=== PATIENT | male | born 1950 | race Caucasian/White ===

== ENCOUNTER 2017-02-26 14:54 | Inpatient (IN) | payer OTHER ==
[~2017-02-26] VITALS: Ht 188 cm; Wt 91.8 kg
[2017-02-26] VITALS (10 sets, daily range): BP systolic 122–165; BP diastolic 65–96; PULSE 60–72; RESP 16–20; TEMP 98.7–98.8; O2SAT 93–97
[~2017-02-26 14:54] MED LIST: LORTA5 PO; PHEN12.5 PR; PROM25TA5 PO; TAMS0.4C67 PO
[2017-02-26] MEDS ORDERED: [UNRECOGNIZED DRUG - REMARK] PO (15:31)
[2017-02-26] MEDS ORDERED: SODIUM CHLOR 0.9% 1000 ML INJ 1,000 ML IV SCH (15:40)
[2017-02-26] MEDS ORDERED: SODIUM CHLORIDE 0.9% FLUSH 10 ML FLUSH IV FLUSH PRN ×2 (15:45→17:45)
[2017-02-26] MEDS ORDERED: ONDANSETRON HCL 4 MG/2 ML VIAL IVP ONE (15:45)
[2017-02-26 16:02] LABS: AUTOMATED NEUTROPHIL # 6.2 TH/MM3 (1.8-7.7); BASOPHIL # 0.1 TH/MM3 (0-0.2); BASOPHIL % 1.1 % (0.0-2.0); EOSINOPHIL # 0.1 TH/MM3 (0-0.4); EOSINOPHIL % 1.1 % (0.0-4.0); HEMATOCRIT 42.9 % (39.0-51.0); HEMO FLAGS DIFF FINAL; LYMPH % 28.8 % (9.0-44.0); LYMPHOCYTE # 3.1 TH/MM3 (1.0-4.8); MEAN CORPUSCULAR HEMOGLOBIN 32.1 PG (27.0-34.0); MEAN CORPUSCULAR HGB CONC 34.1 % (32.0-36.0); MONO % 12.1 % (0.0-8.0); NEUT % 56.9 % (16.0-70.0); PLATELET COUNT 259 TH/MM3 (150-450); RED BLOOD COUNT 4.57 MIL/MM3 (4.50-5.90); RED CELL DISTRIBUTION WIDTH 12.3 % (11.6-17.2); WHITE BLOOD COUNT 10.8 TH/MM3 (4.0-11.0)
--- NOTE | 2017-02-26 16:14 | RADHPO ---
EXAM DATE/TIME: 02/26/2017 15:58 [facility] COMPARISON: No previous studies available for comparison. INDICATIONS : Chest pain; evaluate for free air. MEDICAL HISTORY : None. SURGICAL HISTORY : None. ENCOUNTER: Initial ACUITY: 1 day PAIN SCORE: 5/10 LOCATION: Bilateral chest FINDINGS: Bibasilar patchiness is noted consistent with atelectasis and/or pneumonia. Clinical correlation is r ecommended. The heart is normal. There is no evidence of free intraperitoneal air. CONCLUSION: 1. No free intraperitoneal air. 2. Bibasilar atelectasis and/or mild infiltrates. Clinical correlation is recommended. Collin Ashraf MD on February 26, 2017 at 16:11 Board Certified Radiologist. This report was verified electronically.
[2017-02-26 16:15] LABS: CHLORIDE 108 MEQ/L (98-107); POTASSIUM 3.8 MEQ/L (3.5-5.1); SODIUM (NA) 143 MEQ/L (136-145)
[2017-02-26 16:20] LABS: ANION GAP 9 MEQ/L (5-15); BICARBONATE 26.3 MEQ/L (21.0-32.0); BLOOD UREA NITROGEN 20 MG/DL (7-18)
[2017-02-26 16:21] LABS: APTT (PATIENT) 27.3 SEC (24.3-30.1); INTERNATIONAL NORMALIZED RATIO 0.9 RATIO; PROTHROMBIN TIME - PATIENT 10.2 SEC (9.8-11.6)
[2017-02-26 16:22] LABS: ALT (GPT) 37 U/L (12-78); AST (GOT) 19 U/L (15-37); GLOMERULAR FILTRATION RATE 51 ML/MIN (>89)
[2017-02-26 16:24] LABS: TOTAL BILIRUBIN ADULT 0.8 MG/DL (0.2-1.0)
[2017-02-26 16:25] LABS: ALKALINE PHOSPHATASE 69 U/L (45-117)
[2017-02-26] MEDS ORDERED: MORPHINE SULFATE 4 MG/ML INJ IV PUSH ONE (16:30)
--- NOTE | 2017-02-26 16:42 | PD ---
HPI Chief Complaint: Abdominal Pain Time Seen by Provider: 16:01 Travel History International Travel<30 days: No Contact w/Intl Traveler<30days: No Traveled to known affect area: No History of Present Illness HPI Patient is a 66-year-old male who presents to emergency room with complaints of abdominal pain. Reports that around 2:45 this afternoon, he began to have epigastric pain. Patient reports that he felt nauseous and began to vomit. Patient reports that pain is similar to when he was diagnosed with pancreatitis in the past. Patient reports that he does see Dr. Purdy at the [facility] as his GI physician. Reports that he is not an alcoholic, reports that "they did all these test on me and they can't tell me why I keep getting pancreatitis." Denies fever/chills. Denies chest pain/sob. PFSH Past Medical History Arthritis: Yes Autoimmune Disease: No Cancer: No Cardiovascular Problems: No Diminished Hearing: No Endocrine: No Gastrointestinal Disorders: Yes (PANCREATIC CYST, GASTRIC ULCERS) Genitourinary: Yes Hepatitis: Yes (B) Immune Disorder: No Kidney Stones: Yes Musculoskeletal: Yes Neurologic: No Psychiatric: No Reproductive: No Respiratory: Yes Immunizations Current: Yes Pancreatitis: Yes Ulcer: Yes Tetanus Vaccination: < 5 Years Influenza Vaccination: No Past Surgical History Other Surgery: Yes Social History Alcohol Use: No Tobacco Use: Yes (1 PPD) Substance Use: No Allergies-Medications (Allergen,Severity, Reaction): Coded Allergies: No Known Allergies (Unverified , 02/26/17) Reported Meds & Prescriptions Reported Meds & Active Scripts Active Reported [mucuspill] 1 Tab PO BID Review of Systems General / Constitutional: No: Fever Eyes: No: Visual changes HENT: No: Headaches Cardiovascular: No: Chest Pain or Discomfort Respiratory: No: Shortness of Breath Gastrointestinal: Positive: Nausea, Vomiting, Abdominal Pain Genitourinary: No: Dysuria Musculoskeletal: No: Pain Skin: No Rash Neurologic: No: Weakness Psychiatric: No: Depression Endocrine: No: Polydipsia Hematologic/Lymphatic: No: Easy Bruising Physical Exam Narrative GENERAL: moderate distress SKIN: Focused skin assessment warm/dry. HEAD: Atraumatic. Normocephalic. EYES: Pupils equal and round. No scleral icterus. No injection or drainage. ENT: No nasal bleeding or discharge. Mucous membranes pink and moist. NECK: Trachea midline. No JVD. CARDIOVASCULAR: Regular rate and rhythm. No murmur appreciated. RESPIRATORY: No accessory muscle use. Clear to auscultation. Breath sounds equal bilaterally. GASTROINTESTINAL: Abdomen soft, increased tenderness to epigastrium with guarding on exam MUSCULOSKELETAL: No obvious deformities. No clubbing. No cyanosis. No edema. NEUROLOGICAL: Awake and alert. No obvious cranial nerve deficits. Motor grossly within normal limits. Normal speech. PSYCHIATRIC: Appropriate mood and affect; insight and judgment normal. Data Data Last Documented VS Vital Signs Date Time Temp Pulse Resp B/P Pulse Ox O2 Delivery O2 Flow Rate FiO2 02/26/17 17:33 65 18 122/65 96 Room Air 02/26/17 14:59 98.8 Orders Complete Blood Count With Diff (02/26/17 15:40) Comprehensive Metabolic Panel (02/26/17 15:40) Lipase (02/26/17 15:40) Prothrombin Time / Inr (Pt) (02/26/17 15:40) Act Partial Throm Time (Ptt) (02/26/17 15:40) Iv Access Insert/Monitor (02/26/17 15:40) Oximetry (02/26/17 15:40) NPO (02/26/17 15:40) Ondansetron Inj (Zofran Inj) (02/26/17 15:45) Sodium Chlor 0.9% 1000 Ml Inj (Ns 1000 M (02/26/17 15:40) Sodium Chloride 0.9% Flush (Ns Flush) (02/26/17 15:45) Electrocardiogram (02/26/17 15:40) Chest, Single Ap (02/26/17 15:40) Morphine Inj (Morphine Inj) (02/26/17 16:30) Ct Abd/Pel W Iv Contrast(Rout) (02/26/17 16:29) Hydromorphone Pf Inj (Dilaudid Pf Inj) (02/26/17 17:00) Iohexol 350 Inj (Omnipaque 350 Inj) (02/26/17 17:15) Admit Order (Ed Use Only) (02/26/17 17:44) Labs Laboratory Tests Test 02/26/17 15:30 White Blood Count 10.8 TH/MM3 Red Blood Count 4.57 MIL/MM3 Hemoglobin 14.6 GM/DL Hematocrit 42.9 % Mean Corpuscular Volume 94.0 FL Mean Corpuscular Hemoglobin 32.1 PG Mean Corpuscular Hemoglobin 34.1 % Concent Red Cell Distribution Width 12.3 % Platelet Count 259 TH/MM3 Mean Platelet Volume 8.9 FL Neutrophils (%) (Auto) 56.9 % Lymphocytes (%) (Auto) 28.8 % Monocytes (%) (Auto) 12.1 % Eosinophils (%) (Auto) 1.1 % Basophils (%) (Auto) 1.1 % Neutrophils # (Auto) 6.2 TH/MM3 Lymphocytes # (Auto) 3.1 TH/MM3 Monocytes # (Auto) 1.3 TH/MM3 Eosinophils # (Auto) 0.1 TH/MM3 Basophils # (Auto) 0.1 TH/MM3 CBC Comment DIFF FINAL Differential Comment Prothrombin Time 10.2 SEC Prothromb Time International 0.9 RATIO Ratio Activated Partial 27.3 SEC Thromboplast Time Sodium Level 143 MEQ/L Potassium Level 3.8 MEQ/L Chloride Level 108 MEQ/L Carbon Dioxide Level 26.3 MEQ/L Anion Gap 9 MEQ/L Blood Urea Nitrogen 20 MG/DL Creatinine 1.40 MG/DL Estimat Glomerular Filtration 51 ML/MIN Rate Random Glucose 126 MG/DL Calcium Level 8.9 MG/DL Total Bilirubin 0.8 MG/DL Aspartate Amino Transf 19 U/L (AST/SGOT) Alanine Aminotransferase 37 U/L (ALT/SGPT) Alkaline Phosphatase 69 U/L Total Protein 7.6 GM/DL Albumin 3.8 GM/DL Lipase GREATER THAN 50131 U/L MDM Medical Decision Making Medical Screen Exam Complete: Yes Emergency Medical Condition: Yes Interpretation(s) EKG at 1544: NSR at 63bpm, qt/qtc: 408/413, no acute st or t wave changes Vital Signs Date Time Temp Pulse Resp B/P Pulse Ox O2 Delivery O2 Flow Rate FiO2 02/26/17 16:26 72 18 165/84 94 Room Air 02/26/17 15:54 95 Room Air 02/26/17 15:54 61 18 150/88 95 Room Air 02/26/17 15:24 60 20 147/84 96 Room Air 02/26/17 14:59 98.8 62 16 157/96 97 Laboratory Tests Test 02/26/17 15:30 White Blood Count 10.8 TH/MM3 (4.0-11.0) Red Blood Count 4.57 MIL/MM3 (4.50-5.90) Hemoglobin 14.6 GM/DL (13.0-17.0) Hematocrit 42.9 % (39.0-51.0) Mean Corpuscular Volume 94.0 FL (80.0-100.0) Mean Corpuscular Hemoglobin 32.1 PG (27.0-34.0) Mean Corpuscular Hemoglobin 34.1 % Concent (32.0-36.0) Red Cell Distribution Width 12.3 % (11.6-17.2) Platelet Count 259 TH/MM3 (150-450) Mean Platelet Volume 8.9 FL (7.0-11.0) Neutrophils (%) (Auto) 56.9 % (16.0-70.0) Lymphocytes (%) (Auto) 28.8 % (9.0-44.0) Monocytes (%) (Auto) 12.1 % (0.0-8.0) Eosinophils (%) (Auto) 1.1 % (0.0-4.0) Basophils (%) (Auto) 1.1 % (0.0-2.0) Neutrophils # (Auto) 6.2 TH/MM3 (1.8-7.7) Lymphocytes # (Auto) 3.1 TH/MM3 (1.0-4.8) Monocytes # (Auto) 1.3 TH/MM3 (0-0.9) Eosinophils # (Auto) 0.1 TH/MM3 (0-0.4) Basophils # (Auto) 0.1 TH/MM3 (0-0.2) CBC Comment DIFF FINAL Differential Comment Prothrombin Time 10.2 SEC (9.8-11.6) Prothromb Time International 0.9 RATIO Ratio Activated Partial 27.3 SEC Thromboplast Time (24.3-30.1) Sodium Level 143 MEQ/L (136-145) Potassium Level 3.8 MEQ/L (3.5-5.1) Chloride Level 108 MEQ/L (98-107) Carbon Dioxide Level 26.3 MEQ/L (21.0-32.0) Anion Gap 9 MEQ/L (5-15) Blood Urea Nitrogen 20 MG/DL (7-18) Creatinine 1.40 MG/DL (0.60-1.30) Estimat Glomerular Filtration 51 ML/MIN (>89) Rate Random Glucose 126 MG/DL (74-106) Calcium Level 8.9 MG/DL (8.5-10.1) Total Bilirubin 0.8 MG/DL (0.2-1.0) Aspartate Amino Transf 19 U/L (15-37) (AST/SGOT) Alanine Aminotransferase 37 U/L (12-78) (ALT/SGPT) Alkaline Phosphatase 69 U/L (45-117) Total Protein 7.6 GM/DL (6.4-8.2) Albumin 3.8 GM/DL (3.4-5.0) Lipase GREATER THAN 79844 U/L (73-393) Differential Diagnosis Pancreatitis, acute cholecystitis, gastroenteritis, ACS, gastritis, electrolyte abnormality Narrative Course 66-year-old male who presents to emergency room with complaints of epigastric pain which started around 2:45 PM this afternoon. Patient reports that pain is similar to when he was diagnosed with pancreatitis in the past. Patient was pleasant a monitor upon arrival to emergency room. Labs including lipase as well as CT of abdomen and pelvis ordered. Patient was given IV fluids, antiemetics as well as pain medications. Laboratory Tests Test 02/26/17 15:30 White Blood Count 10.8 TH/MM3 (4.0-11.0) Red Blood Count 4.57 MIL/MM3 (4.50-5.90) Hemoglobin 14.6 GM/DL (13.0-17.0) Hematocrit 42.9 % (39.0-51.0) Mean Corpuscular Volume 94.0 FL (80.0-100.0) Mean Corpuscular Hemoglobin 32.1 PG (27.0-34.0) Mean Corpuscular Hemoglobin 34.1 % Concent (32.0-36.0) Red Cell Distribution Width 12.3 % (11.6-17.2) Platelet Count 259 TH/MM3 (150-450) Mean Platelet Volume 8.9 FL (7.0-11.0) Neutrophils (%) (Auto) 56.9 % (16.0-70.0) Lymphocytes (%) (Auto) 28.8 % (9.0-44.0) Monocytes (%) (Auto) 12.1 % (0.0-8.0) Eosinophils (%) (Auto) 1.1 % (0.0-4.0) Basophils (%) (Auto) 1.1 % (0.0-2.0) Neutrophils # (Auto) 6.2 TH/MM3 (1.8-7.7) Lymphocytes # (Auto) 3.1 TH/MM3 (1.0-4.8) Monocytes # (Auto) 1.3 TH/MM3 (0-0.9) Eosinophils # (Auto) 0.1 TH/MM3 (0-0.4) Basophils # (Auto) 0.1 TH/MM3 (0-0.2) CBC Comment DIFF FINAL Differential Comment Prothrombin Time 10.2 SEC (9.8-11.6) Prothromb Time International 0.9 RATIO Ratio Activated Partial 27.3 SEC Thromboplast Time (24.3-30.1) Sodium Level 143 MEQ/L (136-145) Potassium Level 3.8 MEQ/L (3.5-5.1) Chloride Level 108 MEQ/L (98-107) Carbon Dioxide Level 26.3 MEQ/L (21.0-32.0) Anion Gap 9 MEQ/L (5-15) Blood Urea Nitrogen 20 MG/DL (7-18) Creatinine 1.40 MG/DL (0.60-1.30) Estimat Glomerular Filtration 51 ML/MIN (>89) Rate Random Glucose 126 MG/DL (74-106) Calcium Level 8.9 MG/DL (8.5-10.1) Total Bilirubin 0.8 MG/DL (0.2-1.0) Aspartate Amino Transf 19 U/L (15-37) (AST/SGOT) Alanine Aminotransferase 37 U/L (12-78) (ALT/SGPT) Alkaline Phosphatase 69 U/L (45-117) Total Protein 7.6 GM/DL (6.4-8.2) Albumin 3.8 GM/DL (3.4-5.0) Lipase GREATER THAN 87191 U/L (73-393) lipase 30,000 - patient with acute pancreatitis and writhing in pain at this time. ct abd/pelvis pending Last Impressions Chest X-Ray 02/26/17 0080 Signed Impressions: Service Date/Time: February 15:58 - CONCLUSION: 1. No free intraperitoneal air. 2. Bibasilar atelectasis and/or mild infiltrates. Clinical correlation is recommended. Collin Ashraf MD ct abdomen and pelvis with acute pancreatitis with inflammation around the pancreas which are swollen with slight fluid in the lesser sac extending down to the level of the third portion of duodenum. Patient will require admission to hospital. case reviewed with Dr. Garibay who accepts pt to service Diagnosis Primary Impression: Pancreatitis Qualified Code: K85.80 - Other acute pancreatitis, unspecified complication status Additional Impression: Abdominal pain Qualified Code: R10.13 - Epigastric pain Admitting Information Admitting Physician Requests: Admit Beata Engle DO Feb 26, 2017 16:41
[2017-02-26] MEDS ORDERED: HYDROmorphone HCL PF 2 MG/ML VIAL IVS ONE (17:00)
[2017-02-26] MEDS ORDERED: IOHEXOL 350 MG/ML 10 ML VIAL (for RAD DIAG) IV ONE (17:15)
--- NOTE | 2017-02-26 17:32 | RADHPO ---
EXAM DATE/TIME: 02/26/2017 17:05 [facility] COMPARISON: CT ABDOMEN & PELVIS W CONTRAST, January 10, 2015, 8:11. INDICATIONS : Epigastric pain. Nausea and vomiting. IV CONTRAST: 85 cc Omnipaque 350 (iohexol) IV ORAL CONTRAST: No oral contrast ingested. RADIATION DOSE: 13.41 CTDIvol (mGy) MEDICAL HISTORY : Pancreatitis. Hepatitis B. Renal calculi. SURGICAL HISTORY : None. ENCOUNTER: Initial ACUITY: 1 day PAIN SCALE: 10/10 LOCATION: Epigastric. TECHNIQUE: Volumetric scanning of the abdomen and pelvis was performed. Using automated exposure control and ad justment of the mA and/or kV according to patient size, radiation dose was kept as low as reasonably achievable to obtain optimal diagnostic quality images. FINDINGS: CT Abdomen: The liver is fatty without focal lesions or technique. There is inflammation around the p ancreas which is also swollen with slight fluid in the lesser sac extending down to the level of the third portion of the duodenum. The enhancement of the pancreas appears intact. There is no abscess or pseudocyst. The spleen, adrenals are unremarkable. There is no evidence for any appreciable patholog ical adenopathy, free fluid, or bowel obstruction. Mild right lung base atelectasis and/or infiltrat e is seen. There is also slight deep tendon atelectasis in both lung bases. Small ventral fat herniat ion is seen without evidence for bowel herniation. There is old fracture of L1 transverse process on the left. There are tiny cysts in both kidneys. CT pelvis: There is no evidence for mass, abscess formation, or any significant adenopathy within the pelvis. The prostate gland is inhomogeneous and measures 3.7 x 5.5 cm in AP and transverse diameters and nonspecific. There are scattered diverticuli mainly in the sigmoid colon without definite signs of diverticulitis. Previously seen approximate 5 mm left UVJ stone has not changed, however there is no significant hydronephrosis. CONCLUSION: 1. Acute pancreatitis not present previously. 2. Previously seen hydronephrosis in the left kidney is no longer seen, however the left distal UVJ s tone is still present measuring almost 5 mm in size. Sam Pena MD on February 26, 2017 at 17:26 Board Certified Radiologist. This report was verified electronically.
[2017-02-26] MEDS ORDERED: ONDANSETRON HCL 4 MG/2 ML VIAL IVP PRN (17:45)
[2017-02-26] MEDS ORDERED: NALOXONE HCL 0.4 MG/ML AMP IV PRN (17:45)
[2017-02-26] MEDS ORDERED: HYDROmorphone HCL 2 MG TAB PO PRN (17:45)
[2017-02-26] MEDS ORDERED: ACETAMINOPHEN 325 MG TAB PO PRN (17:45)
[2017-02-26] MEDS ORDERED: GUAI400T8 PO (17:47)
[2017-02-26] MEDS: SODIUM CHLOR 0.9% 1000 ML INJ 1,000 ML IV SCH (18:50)
[2017-02-26] MEDS: PANTOPRAZOLE SODIUM 40 MG VIAL IV PUSH SCH (18:51)
[2017-02-26] MEDS: SODIUM CHLORIDE 0.9% FLUSH 10 ML FLUSH IV FLUSH SCH (21:00)
[2017-02-26] MEDS: HYDROmorphone HCL PF 1 MG/ML VIAL IV PRN (21:54)
[2017-02-27] VITALS (10 sets, daily range): BP systolic 100–130; BP diastolic 67–89; PULSE 63–118; RESP 14–20; TEMP 97.9–99.8; O2SAT 87–99
[2017-02-27] MEDS: HYDROmorphone HCL PF 1 MG/ML VIAL IV PRN ×8 (00:51→23:09)
[2017-02-27] MEDS: SODIUM CHLOR 0.9% 1000 ML INJ 1,000 ML IV SCH ×5 (05:21→22:57)
[2017-02-27 06:45] LABS: AUTOMATED NEUTROPHIL # 9.5 TH/MM3 (1.8-7.7); BASOPHIL % 0.2 % (0.0-2.0); EOSINOPHIL # 0.1 TH/MM3 (0-0.4); EOSINOPHIL % 0.8 % (0.0-4.0); HEMATOCRIT 41.5 % (39.0-51.0); HEMO FLAGS DIFF FINAL; LYMPH % 12.9 % (9.0-44.0); LYMPHOCYTE # 1.5 TH/MM3 (1.0-4.8); MEAN CELL VOLUME 94.4 FL (80.0-100.0); MEAN CORPUSCULAR HEMOGLOBIN 31.7 PG (27.0-34.0); MEAN CORPUSCULAR HGB CONC 33.5 % (32.0-36.0); MONO % 6.3 % (0.0-8.0); NEUT % 79.8 % (16.0-70.0); PLATELET COUNT 207 TH/MM3 (150-450); RED CELL DISTRIBUTION WIDTH 12.5 % (11.6-17.2); WHITE BLOOD COUNT 11.8 TH/MM3 (4.0-11.0)
[2017-02-27 06:54] LABS: CHLORIDE 109 MEQ/L (98-107); SODIUM (NA) 141 MEQ/L (136-145)
[2017-02-27 08:13] LABS: ALKALINE PHOSPHATASE 57 U/L (45-117); ALT (GPT) 27 U/L (12-78); ANION GAP 5 MEQ/L (5-15); AST (GOT) 15 U/L (15-37); BICARBONATE 26.7 MEQ/L (21.0-32.0); BLOOD UREA NITROGEN 15 MG/DL (7-18); GLOMERULAR FILTRATION RATE 75 ML/MIN (>89); TOTAL BILIRUBIN ADULT 0.7 MG/DL (0.2-1.0)
--- NOTE | 2017-02-27 08:43 | HHI.HP ---
[facility] Service [facility] Primary Care Physician [facility] Admission Diagnosis Acute pancreatitis Diagnoses: Chief Complaint: Abdominal pain Travel History International Travel<30 Days: No Contact w/Intl Traveler <30 Da: No Traveled to Known Affected Are: No History of Present Illness Mr. Denton is a pleasant 66-year-old male with a history of pancreatitis who presents to the emergency department on 02/26/2017 with epigastric abdominal pain, nausea and vomiting. On 02/26/2017 after he had some lunch vision started having nausea and vomiting and epigastric pain. His symptoms were similar to his previous episodes of pancreatitis. He has been worked up by GI doctor at the [facility]. And apparently no cause has been identified. Patient denies any changes in bowel or bladder habits. Denies any chest pain, shortness of breath, fever or chills. On arrival temperature 98.8F, pulse 62 respirations 16 blood pressure 157/96 pulse oximetry 97% on room air. Initial lipase was over 30,000. Repeat lipase in the morning today shows 4698. Review of Systems Except as stated in HPI: all other systems reviewed are Neg Past Family Social History Past Medical History Pancreatitis Hepatitis B Past Surgical History No significant surgical history. Reported Medications She does not take any medication on a regular basis. Allergies: Coded Allergies: No Known Allergies (Unverified , 02/26/17) Family History History of lung cancer and colon cancer in parents. Social History Smokes about 1 pack a day. Denies using alcohol or illicit drugs. Physical Exam Vital Signs Vital Signs Date Time Temp Pulse Resp B/P Pulse Ox O2 Delivery O2 Flow Rate FiO2 02/27/17 08:36 87 21 02/27/17 08:35 97.9 118 16 130/89 99 02/27/17 04:00 98.7 71 20 125/83 97 02/27/17 00:00 99.0 71 18 123/72 96 02/26/17 21:26 64 02/26/17 21:04 98.7 68 18 141/89 96 02/26/17 20:50 62 18 160/92 93 Room Air 02/26/17 19:12 65 20 152/90 95 Room Air 02/26/17 19:12 20 02/26/17 18:54 62 20 133/70 97 Nasal Cannula 2 02/26/17 17:33 65 18 122/65 96 Room Air 02/26/17 16:26 72 18 165/84 94 Room Air 02/26/17 15:54 95 Room Air 02/26/17 15:54 61 18 150/88 95 Room Air 02/26/17 15:24 60 20 147/84 96 Room Air 02/26/17 14:59 98.8 62 16 157/96 97 Physical Exam GENERAL: This is a well-nourished, well-developed patient. In mild distress due to pain. SKIN: No rashes, ecchymoses or lesions. Warm and dry. HEAD: Atraumatic. Normocephalic. No temporal or scalp tenderness. EYES: Pupils equal round and reactive. No injection or drainage. ENT: Nose without bleeding, purulent drainage or septal hematoma. Airway patent. NECK: Trachea midline. No lymphadenopathy. Supple, nontender, no meningeal signs. CARDIOVASCULAR: Regular rate and rhythm without murmurs, gallops, or rubs. No JVD. RESPIRATORY: Clear to auscultation. Breath sounds equal bilaterally. No wheezes , rales, or rhonchi. GASTROINTESTINAL: Abdomen soft, diffusely tender on light palpation, nondistended. No guarding. MUSCULOSKELETAL: Extremities without clubbing, cyanosis, or edema. NEUROLOGICAL: Awake and alert. Cranial nerves II through XII intact. No focal neurological deficits. Normal speech. Laboratory Laboratory Tests Test 02/26/17 02/27/17 15:30 06:15 White Blood Count 10.8 11.8 Red Blood Count 4.57 4.40 Hemoglobin 14.6 13.9 Hematocrit 42.9 41.5 Mean Corpuscular Volume 94.0 94.4 Mean Corpuscular Hemoglobin 32.1 31.7 Mean Corpuscular Hemoglobin 34.1 33.5 Concent Red Cell Distribution Width 12.3 12.5 Platelet Count 259 207 Mean Platelet Volume 8.9 8.6 Neutrophils (%) (Auto) 56.9 79.8 Lymphocytes (%) (Auto) 28.8 12.9 Monocytes (%) (Auto) 12.1 6.3 Eosinophils (%) (Auto) 1.1 0.8 Basophils (%) (Auto) 1.1 0.2 Neutrophils # (Auto) 6.2 9.5 Lymphocytes # (Auto) 3.1 1.5 Monocytes # (Auto) 1.3 0.7 Eosinophils # (Auto) 0.1 0.1 Basophils # (Auto) 0.1 0.0 CBC Comment DIFF FINAL DIFF FINAL Differential Comment Prothrombin Time 10.2 Prothromb Time International 0.9 Ratio Activated Partial 27.3 Thromboplast Time Sodium Level 143 141 Potassium Level 3.8 4.0 Chloride Level 108 109 Carbon Dioxide Level 26.3 26.7 Anion Gap 9 5 Blood Urea Nitrogen 20 15 Creatinine 1.40 1.00 Estimat Glomerular Filtration 51 75 Rate Random Glucose 126 109 Calcium Level 8.9 7.8 Total Bilirubin 0.8 0.7 Aspartate Amino Transf 19 15 (AST/SGOT) Alanine Aminotransferase 37 27 (ALT/SGPT) Alkaline Phosphatase 69 57 Total Protein 7.6 6.3 Albumin 3.8 3.0 Lipase GREATER THAN 4698 70631 Result Diagram: 02/27/17 0615 02/27/17 0615 Imaging Last Impressions Gall Bladder Ultrasound 02/27/17 0000 Signed Impressions: Service Date/Time: Monday, February 27, 2017 09:33 - CONCLUSION: 1. Increased hepatic echotexture suggesting some degree of fatty infiltration. 2. Minimal pericholecystic fluid with a small amount of sludge in the gallbladder neck. No stones or mural thickening. Wilfrid Kaur MD Abdomen/Pelvis CT 02/26/17 1629 Signed Impressions: Service Date/Time: February 17:05 - CONCLUSION: 1. Acute pancreatitis not present previously. 2. Previously seen hydronephrosis in the left kidney is no longer seen, however the left distal UVJ stone is still present measuring almost 5 mm in size. Sam Pena MD Chest X-Ray 02/26/17 1540 Signed Impressions: Service Date/Time: February 15:58 - CONCLUSION: 1. No free intraperitoneal air. 2. Bibasilar atelectasis and/or mild infiltrates. Clinical correlation is recommended. Collin Ashraf MD Assessment and Plan Problem List: (1) Acute pancreatitis ICD Code: K85.90 Status: Acute (2) Acute respiratory failure with hypoxia ICD Code: J96.01 Status: Acute (3) Tobacco abuse ICD Code: Z72.0 Status: Acute Assessment and Plan Mr. Denton is a pleasant 66-year-old male with a history of pancreatitis who presents to the emergency department due to epigastric abdominal pain, nausea and vomiting that started after lunch yesterday 2016. Patient denies any chest pain, shortness of breath, fever or chills. Initial lipase was over 30,000. Patient denies using alcohol. Denies any history of hyperlipidemia. - Acute pancreatitis - Etiology is not determined. Patient does not have any history of alcohol intake. - Gallbladder ultrasound shows biliary sludge. - Discussed with GI who advised that patient's pancreatitis may be of biliary etiology. - MRCP recommended and possible surgical consult. - Lipid panel shows triglyceride 102. - Increase fluid to 250 cc per hour. Continue pain management with Dilaudid IV. - We'll order immunoglobulin levels to rule out autoimmune pancreatitis. - Consult GI for possible further workup including to rule out pancreatic divisum. - Acute respiratory failure with hypoxia - O2 saturation 87% on room air. - Continue supplemental oxygen 2-3 L to keep O2 sat above 90%. - Acute kidney injury - creatinine improved 1.40 to 1.0. - Tobacco abuse - counseled patient regarding tobacco cessation. Full code. [place]. Physician Certification 2 Midnight Certification Type: Admission for Inpatient Services Order for Inpatient Services The services are ordered in accordance with Medicare regulations or non- Medicare payer requirements, as applicable. In the case of services not specified as inpatient-only, they are appropriately provided as inpatient services in accordance with the 2-midnight benchmark. Estimated LOS (days): 3 days is the estimated time the patient will need to remain in the hospital, assuming treatment plan goals are met and no additional complications. Post-Hospital Plan: Home Edenilson Sanchez DO Feb 27, 2017 08:43
[2017-02-27] MEDS: SODIUM CHLORIDE 0.9% FLUSH 10 ML FLUSH IV FLUSH SCH ×2 (09:00→20:25)
[2017-02-27 11:45] LABS: HDL CHOLESTEROL 43.2 MG/DL (40.0-60.0)
--- NOTE | 2017-02-27 12:34 | RADHPO ---
EXAM DATE/TIME: 02/27/2017 09:33 [facility] COMPARISON: No previous studies available for comparison. INDICATIONS : Right upper quadrant pain. MEDICAL HISTORY : Renal calculi. Pancreatitis. Hepatitis B. Migraines. Gastric ulcers. Arthritis. Liver disease. SURGICAL HISTORY : Leg surgery at age 5. ENCOUNTER: Initial ACUITY: > 1 year PAIN SCORE: 5/10 LOCATION: Right upper quadrant MEASUREMENTS: LIVER: 17.5 cm length COMMON DUCT: 5 mm RIGHT KIDNEY: 10.4 x 5.5 x 6.8 cm FINDINGS: LIVER: Increased echotexture without focal lesion or ductal dilatation. COMMON DUCT: No intraluminal mass or stone visualized. GALLBLADDER: Small amount of sludge in the gallbladder neck. Minimal pericholecystic fluid without significant mur al thickening. PANCREAS: Obscured by overlying bowel gas. RIGHT KIDNEY: No evidence of hydronephrosis, stone, or mass. CONCLUSION: 1. Increased hepatic echotexture suggesting some degree of fatty infiltration. 2. Minimal pericholecystic fluid with a small amount of sludge in the gallbladder neck. No stones or mural thickening. Wilfrid Kaur MD on February 27, 2017 at 12:30 Board Certified Radiologist. This report was verified electronically.
[2017-02-27] MEDS: ENOXAPARIN SODIUM 40 MG/0.4 ML SYRINGE SQ SCH ×2 (13:45→20:46)
[2017-02-27] MEDS: PANTOPRAZOLE SODIUM 40 MG VIAL IV PUSH SCH ×2 (17:39→20:40)
--- NOTE | 2017-02-27 18:50 | EKG ---
Date Performed: 02/26/2017 Time Performed: 15:44:18 PTAGE: 66 years EKG: Sinus rhythm Normal ECG Compared to prior tracing no significant change PREVIOUS TRACING : 04/20/2014 21.36 DOCTOR: Simone Sanchez Interpretating Date/Time 02/27/2017 18:49:14
--- NOTE | 2017-02-27 19:50 | MB ---
cc: GIL LEE M.D., AHMED DATE OF CONSULTATION: 02/27/2017. REASON FOR CONSULTATION: Acute recurrent pancreatitis. PATIENT OF: Dr. Daniel Pyle. HISTORY OF PRESENT ILLNESS: Mr. Ladd is a 66-year-old gentleman who basically presented a day earlier with pancreatitis associated with nausea, vomiting and abdominal pain. History has been from him and from his at the bedside. Apparently this is his fifth episode of pancreatitis requiring hospital admission since 2008. According to the , he has had a workup done mostly through the [facility]. At one point, they had recommended gallbladder surgery but apparently due to a cyst next to his pancreas, they were told that surgery was not possible. He presented again with acute pancreatitis. REVIEW OF SYSTEMS: Abdominal pain, some nausea. No vomiting. PAST MEDICAL HISTORY: 1. Pancreatitis. 2. Hepatitis B. PAST SURGICAL HISTORY: None given. ALLERGIES: NONE DOCUMENTED. MEDICATIONS ON ADMISSION: None. FAMILY HISTORY: Lung cancer and colon cancer. SOCIAL HISTORY: The patient is a smoker but no alcohol reported. PHYSICAL EXAMINATION: GENERAL: The physical exam reveals a well-nourished man in no apparent distress. VITAL SIGNS: Stable. HEAD AND NECK: Anicteric sclerae. CHEST: Bilateral air entry with rales. ABDOMEN: Abdomen is soft. Tenderness in the epigastric area with voluntary guarding. PROFESSOR OF PRACTICE: Nonfocal. RECTAL: Deferred at this time. LABS: His labs reveal lipase of 4698, creatinine of 1. White cell count 11.8, hemoglobin 13.9. IMAGING STUDIES: A CT of the abdomen and pelvis shows acute pancreatitis, hydronephrosis. There is no mention of a cyst or a pseudocyst. Ultrasound shows fatty infiltration, minimal cholecystic fluid with sludge in the gallbladder neck. IMPRESSION: Pancreatitis, very likely biliary pancreatitis. RECOMMENDATIONS: 1. MRCP ordered. 2. Aggressive IV fluid rehydration recommended as per primary service. 3. Based on MRCP results, would recommend general surgery consultation. This has been discussed with the patient and his family at the bedside. Thank you for this referral. MD PIEDAD Beckman/LITZY /6:11 PM /7:43 PM
[2017-02-28] VITALS (7 sets, daily range): BP systolic 120–159; BP diastolic 78–84; PULSE 66–76; RESP 14–20; TEMP 98.9–100.5; O2SAT 69–95
[2017-02-28] MEDS: HYDROmorphone HCL PF 1 MG/ML VIAL IV PRN (01:55)
[2017-02-28] MEDS: SODIUM CHLOR 0.9% 1000 ML INJ 1,000 ML IV SCH ×4 (02:57→14:04)
[2017-02-28] MEDS: SODIUM CHLORIDE 0.9% FLUSH 10 ML FLUSH IV FLUSH SCH ×2 (08:51→20:40)
--- NOTE | 2017-02-28 08:52 | HHI.PR ---
Subjective Remarks Follow up for acute pancreatitis. Patient is doing somewhat better today. No fever, chills. Tolerating ice chips well. Abdominal pain is better. Urine output is also improved. Objective Vitals Vital Signs Date Time Temp Pulse Resp B/P Pulse Ox O2 Delivery O2 Flow Rate FiO2 02/28/17 08:00 99.0 75 20 159/82 94 02/28/17 04:05 99.7 69 14 130/82 69 02/28/17 02:25 16 02/28/17 01:10 98.9 66 16 128/78 91 02/27/17 23:39 16 02/27/17 21:18 99.8 68 16 116/76 98 02/27/17 20:00 65 02/27/17 20:00 65 02/27/17 19:30 93 Nasal Cannula 2.00 02/27/17 19:30 93 Nasal Cannula 2.00 02/27/17 15:49 98.6 65 14 115/74 94 02/27/17 12:48 98.5 63 16 100/67 92 02/27/17 09:00 92 Nasal Cannula 2.00 I/O 02/27/17 02/27/17 02/27/17 02/28/17 02/28/17 02/28/17 07:00 15:00 23:00 07:00 15:00 23:00 Intake Total 731 ml 5270 ml Output Total 475 ml 300 ml Balance 256 ml 4970 ml Intake IV Total 731 ml 5270 ml Output Urine Total 475 ml 300 ml # Voids 3 0 # Bowel Movements 0 Result Diagram: 02/27/17 0615 02/27/17 0615 Imaging Last Impressions Cholangiopancreatography MRI 02/28/17 0000 Signed Impressions: Service Date/Time: Tuesday, February 28, 2017 10:49 - CONCLUSION: 1. No gallstones are present. 2. Edema around the pancreas consistent with pancreatitis. 3. Hepatic steatosis. 4. There is a mild amount of fluid around the gallbladder fossa, the liver, and in the paracolic gutter regions. Krishna Yang MD Gall Bladder Ultrasound 02/27/17 0000 Signed Impressions: Service Date/Time: Monday, February 27, 2017 09:33 - CONCLUSION: 1. Increased hepatic echotexture suggesting some degree of fatty infiltration. 2. Minimal pericholecystic fluid with a small amount of sludge in the gallbladder neck. No stones or mural thickening. Wilfrid Kaur MD Abdomen/Pelvis CT 02/26/17 1629 Signed Impressions: Service Date/Time: February 17:05 - CONCLUSION: 1. Acute pancreatitis not present previously. 2. Previously seen hydronephrosis in the left kidney is no longer seen, however the left distal UVJ stone is still present measuring almost 5 mm in size. Sam Pena MD Chest X-Ray 02/26/17 1540 Signed Impressions: Service Date/Time: February 15:58 - CONCLUSION: 1. No free intraperitoneal air. 2. Bibasilar atelectasis and/or mild infiltrates. Clinical correlation is recommended. Collin Ashraf MD Objective Remarks GENERAL: AOX3, Somewhat drowsy but wakes up on verbal commands, follows commands. SKIN: Warm and dry. HEAD: Normocephalic. EYES: No scleral icterus. No injection or drainage. NECK: Supple, trachea midline. No JVD or lymphadenopathy. CARDIOVASCULAR: Regular rate and rhythm without murmurs, gallops, or rubs. RESPIRATORY: Breath sounds equal bilaterally. No accessory muscle use. GASTROINTESTINAL: Abdomen sof, mildly tender on abdominal palpation, nondistended. MUSCULOSKELETAL: No cyanosis, or edema. BACK: Nontender without obvious deformity. No CVA tenderness. Procedures None A/P Problem List: (1) Acute pancreatitis ICD Code: K85.90 Status: Acute (2) Acute respiratory failure with hypoxia ICD Code: J96.01 Status: Acute (3) Tobacco abuse ICD Code: Z72.0 Status: Acute Assessment and Plan Mr. Denton is a pleasant 66-year-old male with a history of pancreatitis who presents to the emergency department due to epigastric abdominal pain, nausea and vomiting that started after lunch yesterday 2016. Patient denies any chest pain, shortness of breath, fever or chills. Initial lipase was over 30,000. Patient denies using alcohol. Denies any history of hyperlipidemia. - Acute pancreatitis - Etiology is not determined. Patient does not have any history of alcohol intake. - Gallbladder ultrasound shows biliary sludge. - Discussed with GI who advised that patient's pancreatitis may be of biliary etiology. Will place a surgery consult. May need a HIDA Scan. - MRCP indicates no gallstones. - Lipid panel shows triglyceride 102. - Decrease fluid to 100 cc per hour and will d/c fluid when patient is able to tolerate food/drink by mouth. Continue pain management with Dilaudid IV. - Start Clear liquid diet, advance diet as tolerated - Acute respiratory failure with hypoxia - O2 saturation 87% on room air. - Continue supplemental oxygen 2-3 L to keep O2 sat above 90%. - Acute kidney injury - creatinine improved 1.40 to 1.0. - Tobacco abuse - counseled patient regarding tobacco cessation. Full code. [employer]. Edenilson Sanchez DO Feb 28, 2017 08:51
--- NOTE | 2017-02-28 10:19 | HHI.GIFU ---
GI Follow-up Note Consult Follow-up Subjective: Patient laying in bed , complaining of abdominal pain, slightly better .He has a history of recurrent pancreatitis, starting back in 2008-as per him total of 5 episodes, was told is secondary to gallbladder problems, had an ERCP in 2013 at [facility], as per notes his gallbladder was supposed to be removed at that time but this was not done yet, unclear reasons Objective: PHYSICAL EXAMINATION: Vitals signs stable No fever Vital Signs Date Time Temp Pulse Resp B/P Pulse Ox O2 Delivery O2 Flow Rate FiO2 02/28/17 08:00 99.0 75 20 159/82 94 02/28/17 04:05 99.7 69 14 130/82 69 02/28/17 02:25 16 HEENT: Pupils round and reactive to light; normocephalic; atraumatic; no jaundice. Throat is clear. NECK: Neck is supple, no JVD, no lymphadenopathy. CHEST: Chest is clear to auscultation and percussion. CARDIAC: Regular rate and rhythm with no murmur gallop or rubs. ABDOMEN: Soft, nondistended, epigastric tenderness tender; no hepatosplenomegaly; bowel sounds are present in all four quadrants. EXTREMITIES: No clubbing, cyanosis, or edema. SKIN: Normal; no rash; no jaundice. 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 Available Data (labs, X- Rays, Procedues) : Laboratory Tests Test 02/26/17 02/27/17 15:30 06:15 White Blood Count 10.8 TH/MM3 11.8 TH/MM3 Red Blood Count 4.57 MIL/MM3 4.40 MIL/MM3 Hemoglobin 14.6 GM/DL 13.9 GM/DL Hematocrit 42.9 % 41.5 % Mean Corpuscular Volume 94.0 FL 94.4 FL Mean Corpuscular Hemoglobin 32.1 PG 31.7 PG Mean Corpuscular Hemoglobin 34.1 % 33.5 % Concent Red Cell Distribution Width 12.3 % 12.5 % Platelet Count 259 TH/MM3 207 TH/MM3 Mean Platelet Volume 8.9 FL 8.6 FL Neutrophils (%) (Auto) 56.9 % 79.8 % Lymphocytes (%) (Auto) 28.8 % 12.9 % Monocytes (%) (Auto) 12.1 % 6.3 % Eosinophils (%) (Auto) 1.1 % 0.8 % Basophils (%) (Auto) 1.1 % 0.2 % Neutrophils # (Auto) 6.2 TH/MM3 9.5 TH/MM3 Lymphocytes # (Auto) 3.1 TH/MM3 1.5 TH/MM3 Monocytes # (Auto) 1.3 TH/MM3 0.7 TH/MM3 Eosinophils # (Auto) 0.1 TH/MM3 0.1 TH/MM3 Basophils # (Auto) 0.1 TH/MM3 0.0 TH/MM3 CBC Comment DIFF FINAL DIFF FINAL Differential Comment Prothrombin Time 10.2 SEC Prothromb Time International 0.9 RATIO Ratio Activated Partial 27.3 SEC Thromboplast Time Sodium Level 143 MEQ/L 141 MEQ/L Potassium Level 3.8 MEQ/L 4.0 MEQ/L Chloride Level 108 MEQ/L 109 MEQ/L Carbon Dioxide Level 26.3 MEQ/L 26.7 MEQ/L Anion Gap 9 MEQ/L 5 MEQ/L Blood Urea Nitrogen 20 MG/DL 15 MG/DL Creatinine 1.40 MG/DL 1.00 MG/DL Estimat Glomerular Filtration 51 ML/MIN 75 ML/MIN Rate Random Glucose 126 MG/DL 109 MG/DL Calcium Level 8.9 MG/DL 7.8 MG/DL Total Bilirubin 0.8 MG/DL 0.7 MG/DL Aspartate Amino Transf 19 U/L 15 U/L (AST/SGOT) Alanine Aminotransferase 37 U/L 27 U/L (ALT/SGPT) Alkaline Phosphatase 69 U/L 57 U/L Total Protein 7.6 GM/DL 6.3 GM/DL Albumin 3.8 GM/DL 3.0 GM/DL Lipase GREATER THAN 4698 U/L 47985 U/L Triglycerides Level 102 MG/DL Cholesterol Level 147 MG/DL LDL Cholesterol 83 MG/DL HDL Cholesterol 43.2 MG/DL Cholesterol/HDL Ratio 3.40 RATIO ASSESSMENT/PLAN: recurrent pancreatitis -most likely biliary cause , s/p ercp in 2013-as per notes no cbd stones at that time possible gallbladder pathology Recommendations ivf pain medications mrcp to evaluate for cbd stones general surgery for possible cholecystectomy consider hida if requested by surgery It was a pleasure seeing Collin Denton Jr. Thank you for this consult. Entered by: Love Bryant MD Feb 28, 2017 10:19
[2017-02-28 11:49] LABS: IMMUNOGLOBULIN A 224 MG/DL (98-543)
[2017-02-28 12:00] LABS: IMMUNOGLOBULIN G 932 MG/DL (670-1650); IMMUNOGLOBULIN M 43 MG/DL (39-238)
--- NOTE | 2017-02-28 12:14 | RADHPO ---
EXAM DATE/TIME: 02/28/2017 10:49 [facility] COMPARISON: CT ABDOMEN & PELVIS W CONTRAST, February 26, 2017, 17:05. MRCP W/O CONTRAST, May 09, 2013, 17:07. INDICATIONS : Pancreatitis. MEDICAL HISTORY : Pancreatitis. SURGICAL HISTORY : None. ENCOUNTER: Initial ACUITY: 1 day PAIN SCORE: 5/10 LOCATION: Abdomen. TECHNIQUE: Multiplanar, multisequence magnetic resonance imaging of the abdomen was performed. High-resolution 3D dataset was utilized to reconstruct maximum-intensity projection (MIP) images. FINDINGS: INTRAHEPATIC BILE DUCTS: Within normal limits. No significant anatomical variant is present. EXTRAHEPATIC BILE DUCTS: The common bile duct measures 4 mm No stone or filling defect is identified. GALLBLADDER: No stones are seen. There is fluid seen around the gallbladder. There is also mild fluid seen around the liver and in the paracolic gutter regions. LIVER: There is fat signal seen in the liver. PANCREAS: The main pancreatic duct is normal in size. There is some edema seen around the pancreas. OTHER: The remaining visualized structures demonstrate no acute abnormality on this non-contrast exam. There is an 8mm cyst at the inferior posterior right kidney. CONCLUSION: 1. No gallstones are present. 2. Edema around the pancreas consistent with pancreatitis. 3. Hepatic steatosis. 4. There is a mild amount of fluid around the gallbladder fossa, the liver, and in the paracolic gutt er regions. Krishna Yang MD on February 28, 2017 at 12:07 Board Certified Radiologist. This report was verified electronically.
--- NOTE | 2017-02-28 22:36 | MB ---
cc: MIR SHARMA DATE OF CONSULTATION 02/26/[address] Jason Sanchez. REASON FOR CONSULTATION Gallstone pancreatitis. HISTORY OF PRESENT ILLNESS The patient is a 56-year-old male who was admitted to [facility] with recurrent gallstone pancreatitis. The patient has severe 10/10 pain and underwent evaluation and was found to have significantly elevated lipase. CT scan of the abdomen and pelvis did show severe pancreatitis without necrosis on 02/26/2017. The patient was admitted for pain control and IV fluid and support as well as a made n.p.o. on. In the last 24 hours, the patient states he had decreased pain and laboratory values show decreasing lipase. Ab MRCP performed 02/26/2017 shows no gallstones, edema around the pancreas consistent with pancreatitis and hepatic steatosis. The patient denies alcohol use. REVIEW OF SYSTEMS A 12-point review of systems conducted and negative except for the pertinent positives mentioned above. PAST MEDICAL HISTORY 1. History of recurrent pancreatitis 2. Hepatitis B PAST SURGICAL HISTORY None ALLERGIES None FAMILY HISTORY Noncontributory. SOCIAL HISTORY The patient does smoke cigarettes, denies alcohol or illicit drug use. PHYSICAL EXAMINATION VITAL SIGNS: Blood pressure 120/84, heart rate 76, respiratory rate 20, temperature 99.5 degrees. GENERAL: The patient is a male in no acute distress. He appears uncomfortable, does not appear acute or chronically ill. HEENT: Head normocephalic, atraumatic. Pupils round, react, accommodate to light. Sclerae are anicteric. Mucous membranes are moist. NECK: Supple. No JVD. LUNGS: Breath sounds present bilaterally. Nonlabored breathing pattern. HEART: Regular rate and rhythm. ABDOMEN: Soft, significant tenderness in epigastric area with focal rebound consistent with pancreatitis. he is nondistended, normal bowel sounds. No hernias. No organomegaly. No ascites. EXTREMITIES: No clubbing, cyanosis or edema. BACK: No CVA tenderness. NEUROLOGIC: The patient is awake, alert, oriented x4, moving all extremities equally and nonfocally, cranial II-XII grossly intact. ASSESSMENT/PLAN The patient is a 56-year-old male with recurrent gallstone pancreatitis. The patient appears to be responding to current medical management of acute pancreatitis. I do recommend after the patient's pancreatitis cools off prior to discharge and prior to cholecystectomy. We will perform this likely sometime this week when the patient is significantly better. We discussed this with the patient and his family including the risks, benefits, alternatives and the procedure. All questions were answered to their satisfaction. We will follow along with the patient and planned cholecystectomy prior to discharge. Thank you very much for this consultation. MD MEGHANN Olivera/ /8:20 PM /10:18 PM MTDBe
[2017-03-01] MEDS: SODIUM CHLOR 0.9% 1000 ML INJ 1,000 ML IV SCH (00:28)
[2017-03-01 00:37] VITALS: BP 121/75; PULSE 80; RESP 14; TEMP 99.4; O2SAT 92
[2017-03-01 07:50] VITALS: O2SAT 95
[2017-03-01 08:00] VITALS: BP 133/86; PULSE 65; RESP 20; TEMP 98.2; O2SAT 93
--- NOTE | 2017-03-01 08:55 | HHI.PR ---
Subjective Remarks Follow up for acute pancreatitis. Mr. Denton is doing better. He is tolerating clear liquid well. Would like to advance his diet. No fever, chills. Objective Vitals Vital Signs Date Time Temp Pulse Resp B/P Pulse Ox O2 Delivery O2 Flow Rate FiO2 03/01/17 08:00 98.2 65 20 133/86 93 03/01/17 07:50 95 Nasal Cannula 2.00 03/01/17 07:50 95 Nasal Cannula 2.00 03/01/17 00:37 99.4 80 14 121/75 92 02/28/17 20:22 100.5 72 14 138/78 92 02/28/17 20:09 92 Nasal Cannula 2.00 02/28/17 20:09 92 Nasal Cannula 2.00 02/28/17 16:00 99.5 76 20 120/84 92 02/28/17 12:00 99.4 71 20 133/82 92 I/O 02/28/17 02/28/17 02/28/17 03/01/17 03/01/17 03/01/17 07:00 15:00 23:00 07:00 15:00 23:00 Intake Total 5270 ml 900 ml Output Total 300 ml 1000 ml 300 ml 800 ml Balance 4970 ml -100 ml -300 ml -800 ml Intake Oral 900 ml IV Total 5270 ml Output Urine Total 300 ml 1000 ml 300 ml 800 ml # Voids 0 # Bowel Movements 0 Result Diagram: 02/27/17 0615 02/27/17 0615 Imaging Last Impressions Cholangiopancreatography MRI 02/28/17 0000 Signed Impressions: Service Date/Time: Tuesday, February 28, 2017 10:49 - CONCLUSION: 1. No gallstones are present. 2. Edema around the pancreas consistent with pancreatitis. 3. Hepatic steatosis. 4. There is a mild amount of fluid around the gallbladder fossa, the liver, and in the paracolic gutter regions. Krishna Yang MD Gall Bladder Ultrasound 02/27/17 0000 Signed Impressions: Service Date/Time: Monday, February 27, 2017 09:33 - CONCLUSION: 1. Increased hepatic echotexture suggesting some degree of fatty infiltration. 2. Minimal pericholecystic fluid with a small amount of sludge in the gallbladder neck. No stones or mural thickening. Wilfrid Kaur MD Abdomen/Pelvis CT 02/26/17 1629 Signed Impressions: Service Date/Time: February 17:05 - CONCLUSION: 1. Acute pancreatitis not present previously. 2. Previously seen hydronephrosis in the left kidney is no longer seen, however the left distal UVJ stone is still present measuring almost 5 mm in size. Sam Pena MD Chest X-Ray 02/26/17 1540 Signed Impressions: Service Date/Time: February 15:58 - CONCLUSION: 1. No free intraperitoneal air. 2. Bibasilar atelectasis and/or mild infiltrates. Clinical correlation is recommended. Collin Ashraf MD Objective Remarks GENERAL: AOX3, NAD. SKIN: Warm and dry. HEAD: Normocephalic. EYES: No scleral icterus. No injection or drainage. NECK: Supple, trachea midline. No JVD or lymphadenopathy. CARDIOVASCULAR: Regular rate and rhythm without murmurs, gallops, or rubs. RESPIRATORY: Breath sounds equal bilaterally. No accessory muscle use. GASTROINTESTINAL: Abdomen sof, mildly tender on abdominal palpation, nondistended. MUSCULOSKELETAL: No cyanosis, or edema. BACK: Nontender without obvious deformity. No CVA tenderness. Procedures None A/P Problem List: (1) Acute pancreatitis ICD Code: K85.90 Status: Acute (2) Acute respiratory failure with hypoxia ICD Code: J96.01 Status: Acute (3) Tobacco abuse ICD Code: Z72.0 Status: Acute Assessment and Plan Mr. Denton is a pleasant 66-year-old male with a history of pancreatitis who presents to the emergency department due to epigastric abdominal pain, nausea and vomiting that started after lunch yesterday 2016. Patient denies any chest pain, shortness of breath, fever or chills. Initial lipase was over 30,000. Patient denies using alcohol. Denies any history of hyperlipidemia. - Acute pancreatitis - Etiology is not determined. Patient does not have any history of alcohol intake. - Gallbladder ultrasound shows biliary sludge. - Discussed with GI who advised that patient's pancreatitis may be of biliary etiology. Surgery evaluated patient and recommends cholecystectomy during this admission. - MRCP indicates no gallstones. - Lipid panel shows triglyceride 102. - Discontinue fluid. - Continue pain management with Dilaudid IV. - Start regular food. - Acute respiratory failure with hypoxia - O2 saturation 87% on room air. - Continue supplemental oxygen 2-3 L to keep O2 sat above 90%. - D/C continuous pulse oximetry. - Acute kidney injury - creatinine improved 1.40 to 1.0. - Tobacco abuse - counseled patient regarding tobacco cessation. - Other - patient can get out of bed. Full code. Lovenox. Edenilson Sanchez DO Mar 01, 2017 8:54 am
[2017-03-01] MEDS: SODIUM CHLORIDE 0.9% FLUSH 10 ML FLUSH IV FLUSH SCH ×2 (09:00→21:00)
[2017-03-01 12:00] VITALS: BP 138/92; PULSE 67; RESP 20; TEMP 98.1; O2SAT 94
[2017-03-01] MEDS: ENOXAPARIN SODIUM 40 MG/0.4 ML SYRINGE SQ SCH (13:52)
[2017-03-01 16:00] VITALS: BP 108/70; PULSE 68; RESP 20; TEMP 98.5; O2SAT 92
[2017-03-01] MEDS: PANTOPRAZOLE SODIUM 40 MG VIAL IV PUSH SCH (16:18)
--- NOTE | 2017-03-01 19:02 | HHI.GIFU ---
GI Follow-up Note Consult Follow-up Subjective: Patient laying in bed comfortably, feeling better.Had solid food, tolerating well.No nausea, vomiting , abdominal pain better .Surgery planning cholecystectomy once better Objective: PHYSICAL EXAMINATION: Vitals signs stable No fever Vital Signs Date Time Temp Pulse Resp B/P Pulse Ox O2 Delivery O2 Flow Rate FiO2 03/01/17 16:00 98.5 68 20 108/70 92 03/01/17 12:00 98.1 67 20 138/92 94 HEENT: Pupils round and reactive to light; normocephalic; atraumatic; no jaundice. Throat is clear. NECK: Neck is supple, no JVD, no lymphadenopathy. CHEST: Chest is clear to auscultation and percussion. CARDIAC: Regular rate and rhythm with no murmur gallop or rubs. ABDOMEN: Soft, nondistended, mild tenderness ; no hepatosplenomegaly; bowel sounds are present in all four quadrants. EXTREMITIES: No clubbing, cyanosis, or edema. SKIN: Normal; no rash; no jaundice. [employer]: No focal deficits; alert and oriented times three. Available Data (labs, X- Rays, Procedues) : Laboratory Tests Test 02/28/17 06:36 Immunoglobulin G Total 932 MG/DL Immunoglobulin A 224 MG/DL Immunoglobulin M 43 MG/DL ASSESSMENT/PLAN: recurrent pancreatis possible biliary etiology -clinically better Recommendation cholecystectomy planned as per surgery low fat diet [id number] avoid etoh It was a pleasure seeing Collin Denton Jr. Thank you for this consult. Entered by: Love Bryant MD Mar 01, 2017 19:02
[2017-03-01 20:36] LABS: CHLORIDE 109 MEQ/L (98-107); POTASSIUM 3.9 MEQ/L (3.5-5.1); SODIUM (NA) 142 MEQ/L (136-145)
[2017-03-01 20:40] LABS: ANION GAP 9 MEQ/L (5-15); BICARBONATE 23.8 MEQ/L (21.0-32.0); BLOOD UREA NITROGEN 15 MG/DL (7-18)
[2017-03-01 20:43] LABS: ALT (GPT) 19 U/L (12-78); AST (GOT) 14 U/L (15-37); GLOMERULAR FILTRATION RATE 67 ML/MIN (>89)
[2017-03-01 20:44] LABS: TOTAL BILIRUBIN ADULT 0.4 MG/DL (0.2-1.0)
[2017-03-01 20:45] LABS: ALKALINE PHOSPHATASE 60 U/L (45-117)
[2017-03-01 20:48] VITALS: O2SAT 92
[2017-03-02 01:04] VITALS: BP 107/71; PULSE 69; RESP 16; TEMP 99.4; O2SAT 93
[2017-03-02 08:00] VITALS: BP 125/81; PULSE 62; RESP 18; TEMP 98.4; O2SAT 95
[2017-03-02] MEDS: SODIUM CHLORIDE 0.9% FLUSH 10 ML FLUSH IV FLUSH SCH (09:00)
--- NOTE | 2017-03-02 09:07 | HHI.GIFU ---
Subjective Remarks doing well, abdominal pain resolved, tolerating diet Objective Vitals I&O Vital Signs Date Time Temp Pulse Resp B/P Pulse Ox O2 Delivery O2 Flow Rate FiO2 03/02/17 01:04 99.4 69 16 107/71 93 03/01/17 20:48 92 21 03/01/17 20:48 92 21 03/01/17 16:00 98.5 68 20 108/70 92 03/01/17 12:00 98.1 67 20 138/92 94 I/O 03/01/17 03/01/17 03/01/17 03/02/17 03/02/17 03/02/17 07:00 15:00 23:00 07:00 15:00 23:00 Intake Total 540 ml Output Total 800 ml Balance -800 ml 540 ml Intake Oral 540 ml Output Urine Total 800 ml # Voids 8 3 2 # Bowel Movements 2 Laboratory Laboratory Tests Test 03/01/17 20:00 Sodium Level 142 Potassium Level 3.9 Chloride Level 109 Carbon Dioxide Level 23.8 Anion Gap 9 Blood Urea Nitrogen 15 Creatinine 1.10 Estimat Glomerular Filtration 67 Rate Random Glucose 125 Calcium Level 8.2 Total Bilirubin 0.4 Aspartate Amino Transf 14 (AST/SGOT) Alanine Aminotransferase 19 (ALT/SGPT) Alkaline Phosphatase 60 Total Protein 6.5 Albumin 2.6 Lipase 519 Physical Exam HEENT: Pupils round and reactive to light; normocephalic; atraumatic; no jaundice. Throat is clear. NECK: Neck is supple, no JVD, no lymphadenopathy. CHEST: Chest is clear to auscultation and percussion. CARDIAC: Regular rate and rhythm with no murmur gallop or rubs. ABDOMEN: Soft, nondistended, mild general tenderness; no hepatosplenomegaly; bowel sounds are present in all four quadrants. EXTREMITIES: No clubbing, cyanosis, or edema. SKIN: Normal; no rash; no jaundice. 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 Assessment and Plan Plan Pancreatitis, doing better, tolerating food. re check lipase if improved and continue to tolerate diet then he can go home Abraham Blackwood MD Mar 02, 2017 09:07
[2017-03-02 09:30] VITALS: O2SAT 92
[2017-03-02] MEDS ORDERED: DILA4TAB2 PO (10:09)
--- NOTE | 2017-03-02 10:10 | HHI.DS ---
Discharge Summary Admission Date Feb 27, 2017 at 8:43 am Discharge Date: Mar 02, 2017 Admitting Diagnosis Acute pancreatitis (1) Acute pancreatitis ICD Code: K85.90 Diagnosis: Principal (2) Acute respiratory failure with hypoxia ICD Code: J96.01 (3) Tobacco abuse ICD Code: Z72.0 Procedures None Brief History - From Admission Mr. Denton is a pleasant 66-year-old male with a history of pancreatitis who presents to the emergency department on 02/26/2017 with epigastric abdominal pain, nausea and vomiting. On 02/26/2017 after he had some lunch vision started having nausea and vomiting and epigastric pain. His symptoms were similar to his previous episodes of pancreatitis. He has been worked up by GI doctor at the [facility]. And apparently no cause has been identified. Patient denies any changes in bowel or bladder habits. Denies any chest pain, shortness of breath, fever or chills. On arrival temperature 98.8F, pulse 62 respirations 16 blood pressure 157/96 pulse oximetry 97% on room air. Initial lipase was over 30,000. Repeat lipase in the morning today shows 4698. CBC/BMP: 02/27/17 0615 03/01/171999 Significant Findings Laboratory Tests Test 03/01/17 20:00 Chloride Level 109 MEQ/L (98-107) Estimat Glomerular Filtration 67 ML/MIN (>89) Rate Random Glucose 125 MG/DL (74-106) Calcium Level 8.2 MG/DL (8.5-10.1) Aspartate Amino Transf 14 U/L (15-37) (AST/SGOT) Albumin 2.6 GM/DL (3.4-5.0) Lipase 519 U/L (73-393) Imaging Last Impressions Cholangiopancreatography MRI 02/28/17 0000 Signed Impressions: Service Date/Time: Tuesday, February 28, 2017 10:49 - CONCLUSION: 1. No gallstones are present. 2. Edema around the pancreas consistent with pancreatitis. 3. Hepatic steatosis. 4. There is a mild amount of fluid around the gallbladder fossa, the liver, and in the paracolic gutter regions. Krishna Yang MD Gall Bladder Ultrasound 02/27/17 0000 Signed Impressions: Service Date/Time: Monday, February 27, 2017 09:33 - CONCLUSION: 1. Increased hepatic echotexture suggesting some degree of fatty infiltration. 2. Minimal pericholecystic fluid with a small amount of sludge in the gallbladder neck. No stones or mural thickening. Wilfrid Kaur MD Abdomen/Pelvis CT 02/26/17 1629 Signed Impressions: Service Date/Time: February 17:05 - CONCLUSION: 1. Acute pancreatitis not present previously. 2. Previously seen hydronephrosis in the left kidney is no longer seen, however the left distal UVJ stone is still present measuring almost 5 mm in size. Sam Pena MD Chest X-Ray 02/26/17 1540 Signed Impressions: Service Date/Time: February 15:58 - CONCLUSION: 1. No free intraperitoneal air. 2. Bibasilar atelectasis and/or mild infiltrates. Clinical correlation is recommended. Collin Ashraf MD PE at Discharge GENERAL: AOX3, NAD. SKIN: Warm and dry. HEAD: Normocephalic. EYES: No scleral icterus. No injection or drainage. NECK: Supple, trachea midline. No JVD or lymphadenopathy. CARDIOVASCULAR: Regular rate and rhythm without murmurs, gallops, or rubs. RESPIRATORY: Breath sounds equal bilaterally. No accessory muscle use. GASTROINTESTINAL: Abdomen sof, mildly tender on abdominal palpation, nondistended. MUSCULOSKELETAL: No cyanosis, or edema. BACK: Nontender without obvious deformity. No CVA tenderness. Pt update on day of discharge Patient is doing well. No acute concerns. Tolerating diet well. Wants to go home and follow up with General surgery for elective Cholecystectomy. Hospital Course Mr. Denton is a pleasant 66-year-old male with a history of pancreatitis who presents to the emergency department due to epigastric abdominal pain, nausea and vomiting that started after lunch yesterday 2016. Patient denies any chest pain, shortness of breath, fever or chills. Initial lipase was over 30,000. Patient denies using alcohol. Denies any history of hyperlipidemia. - Acute pancreatitis - Etiology is not determined. Patient does not have any history of alcohol intake. - Gallbladder ultrasound shows biliary sludge. - Discussed with GI who advised that patient's pancreatitis may be of biliary etiology. Surgery evaluated patient and recommends cholecystectomy during this admission. I discussed with patient and - they want to delay surgery by a few more days. Discussed with surgery attending on 03/02/2017 who agreed with plan to delay surgery. Patient is being discharged home and surgery attending will have his office called patient to schedule elective cholecystectomy. - MRCP indicates no gallstones. - Lipid panel shows triglyceride 102. - Discontinue fluid. - Continue pain management with Dilaudid IV. -Tolerating regular food - Acute respiratory failure with hypoxia - resolved. - Acute kidney injury - creatinine improved 1.40 to 1.0. - Tobacco abuse - counseled patient regarding tobacco cessation. - Other - patient can get out of bed. Full code. Lovenox. Discharge patient to home Condition on discharge: Improved Regular Diet as tolerated Ad Delaney activity Rx written: Hydromorphone 4 mg by mouth every 6 hours when necessary for pain #20 Follow-up with primary care physician in one week. Gen. surgery follow-up within one week. Pt Condition on Discharge: Good Discharge Disposition: Discharge Home Discharge Time: > 30 minutes Discharge Instructions DIET: Follow Instructions for: As Tolerated, No Restrictions Activities you can perform: Regular-No Restrictions Follow up Referrals: PCP Follow-up - 1 Week Surgical - 1 Week with Edmund Guillen MD New Medications: Hydromorphone (Dilaudid) 4 Mg Tab 4 MG PO Q6H PRN Pain Management #20 Ref 0 TAB Continued Medications: Guaifenesin (Guaifenesin) 400 Mg Tab 1 TAB PO BID Edenilson Sanchez DO Mar 02, 2017 10:10 am
[2017-03-05 03:50] LABS: IGG SUBCLASSES 4 96.2 mg/dL (4-86)
== END 2017-03-02 12:20 | disposition home or self-care (01) | DRG 438 ==
LOC: PHED 14:54 → PHEDA 17:52 → PH3A 21:04 → OBSVTOIN 02-27 08:43
PROVIDERS: ADMIT Hospitalist; ATTEND Hospitalist
DX: K85.90 Acute pancreatitis without necrosis or infection, unspecified (principal); J96.01 Acute respiratory failure with hypoxia; N17.9 Acute kidney failure, unspecified; K86.2 Cyst of pancreas; F17.210 Nicotine dependence, cigarettes, uncomplicated; M19.90 Unspecified osteoarthritis, unspecified site; Z87.442 Personal history of urinary calculi; Z87.11 Personal history of peptic ulcer disease; Z86.19 Personal history of other infectious and parasitic diseases
CPT/HCPCS: 71010; 74177; 74181; 76377; 76705; 80053; 80061; 82784; 82787; 82948; 83690; 85025; 85610; 85730; 93005; 94762; 96361; 96374; 96375; C9113; G0378; J1170; J2270; J2405; J7030; Q9967